=== PATIENT | female | born 1990 | race Caucasian/White ===

== ENCOUNTER 2023-02-13 10:28 | Emergency (ER) | payer OTHER ==
[2023-02-13 10:42] VITALS: BMI 28.0
[2023-02-13 11:23] LABS: BASO % 0.4 % (0-2.0); EOS % 0.5 % (0-4.5); HEMATOCRIT 35.7 % (32.4-45.2); HEMOGLOBIN 12.6 GM/dL (10.7-15.3); LYMPH % 17.1 % (8-40); MCH 32.4 pg (25.7-33.7); MCHC 35.5 g/dl (32.0-36.0); MEAN CELL VOLUME 91.4 fl (80-96); MEAN PLT VOLUME 8.2 fl (7.5-11.1); MONO % 4.3 % (3.8-10.2); NEUT % 77.7 % (42.8-82.8); PLATELET COUNT 241 10^3/uL (134-434); RDW 14.7 % (11.6-15.6); WHITE BLOOD COUNT 9.4 K/mm3 (4.0-10.0)
[2023-02-13 11:26] LABS: EPI CELLS >36 /uL (0-25.1); HYALINE CASTS 1 /uL (0-3.1); URINE APPEARANCE CLEAR; URINE BACTERIA 1581 /uL (0-1359); URINE BILIRUBIN NEGATIVE (NEGATIVE); URINE COLOR YELLOW; URINE GLUCOSE (UA) NEGATIVE (NEGATIVE); URINE KETONE NEGATIVE (NEGATIVE); URINE LEUK ESTERASE 1+ (NEGATIVE); URINE NITRITE NEGATIVE (NEGATIVE); URINE PROTEIN NEGATIVE (NEGATIVE); URINE RBC 37 /uL (0-23.9); URINE UROBILINOGEN 0.2 mg/dL (0.2-1.0); URINE WBC 15 /uL (0-25.8)
[2023-02-13 11:57] LABS: ALBUMIN 3.3 g/dl (3.4-5.0); CHLORIDE 104 mmol/L (98-107); POTASSIUM 4.5 mmol/L (3.5-5.1); SODIUM 133 mmol/L (136-145)
[2023-02-13 11:58] LABS: ANION GAP 3 MMOL/L (8-16); BLOOD UREA NITROGEN 8.1 mg/dL (7-18); CALCIUM 8.8 mg/dL (8.5-10.1); CO2 26 mmol/L (21-32); GLUCOSE,RANDOM 80 mg/dL (74-106)
[2023-02-13 12:02] LABS: CREATININE 0.5 mg/dL (0.55-1.3); SGOT/AST 9 U/L (15-37); SGPT/ALT 18 U/L (13-61)
[2023-02-13 12:04] LABS: ALK PHOS 52 U/L (45-117); BILIRUBIN,TOTAL < 0.1 mg/dL (0.2-1); TOT PROT 6.8 g/dl (6.4-8.2)
[2023-02-13] MEDS ORDERED: ONDANSETRON *ODT* 4 MG TABLET SL ONE (12:48)
[2023-02-13] MEDS ORDERED: ONDANSETRON *ODT* 4 MG TABLET ONE (13:02)
[2023-02-13 14:19] VITALS: BP 122/78; PULSE 72; RESP 19; TEMP 97.8
== END 2023-02-13 14:19 | disposition home or self-care (01) ==
LOC: JER 10:28
DX: O21.9 Vomiting of pregnancy, unspecified (principal); Z3A.15 15 weeks gestation of pregnancy
CPT/HCPCS: 36415; 80053; 81003; 84702; 85025; 86850; 86900; 86901; 87086; 99283-25; Q0162

== ENCOUNTER 2023-05-23 07:59 | Emergency (ER) | payer OTHER ==
[2023-05-23 08:13] VITALS: BMI 31.8
[2023-05-23] MEDS ORDERED: SODIUM CHLORIDE 1,000 ML IV STA (09:07)
[2023-05-23] MEDS ORDERED: ACETAMINOPHEN 1000 MG/100 ML BAG IVPB ONE (09:07)
[2023-05-23] MEDS ORDERED: ACETAMINOPHEN INJECTION 100 ML IVPB ONE (09:20)
[2023-05-23 10:02] LABS: BASO % 0.2 % (0-2.0); EOS % 0.1 % (0-4.5); HEMATOCRIT 43.1 % (32.4-45.2); HEMOGLOBIN 14.8 GM/dL (10.7-15.3); LYMPH % 10.4 % (8-40); MCH 33.2 pg (25.7-33.7); MCHC 34.4 g/dl (32.0-36.0); MEAN CELL VOLUME 96.5 fl (80-96); MEAN PLT VOLUME 8.1 fl (7.5-11.1); MONO % 9.7 % (3.8-10.2); NEUT % 79.6 % (42.8-82.8); PLATELET COUNT 278 10^3/uL (134-434); RBC 4.47 M/mm3 (3.60-5.2); RDW 13.7 % (11.6-15.6); WHITE BLOOD COUNT 6.8 K/mm3 (4.0-10.0)
[2023-05-23 10:03] LABS: EPI CELLS >36 /uL (0-25.1); HYALINE CASTS 9 /uL (0-3.1); URINE APPEARANCE CLOUDY; URINE BACTERIA 1670 /uL (0-1359); URINE BILIRUBIN NEGATIVE (NEGATIVE); URINE COLOR DK YELLOW; URINE GLUCOSE (UA) NEGATIVE (NEGATIVE); URINE KETONE 1+ (NEGATIVE); URINE LEUK ESTERASE 2+ (NEGATIVE); URINE NITRITE NEGATIVE (NEGATIVE); URINE PROTEIN 1+ (NEGATIVE); URINE WBC 208 /uL (0-25.8)
[2023-05-23 10:11] LABS: INR 0.98 (0.83-1.09); PROTHROMBIN TIME (PATIENT) 11.4 SEC (9.7-13.0)
[2023-05-23 10:14] LABS: ACTIVATED PTT 28.4 SECONDS (25.2-36.5)
[2023-05-23 10:15] LABS: CALCIUM 9.7 mg/dL (8.5-10.1)
[2023-05-23 10:16] LABS: ALBUMIN 3.1 g/dl (3.4-5.0); BLOOD UREA NITROGEN 6.5 mg/dL (7-18)
[2023-05-23 10:19] LABS: CREATININE 0.8 mg/dL (0.55-1.3)
[2023-05-23 10:20] LABS: TOT PROT 7.2 g/dl (6.4-8.2)
[2023-05-23 10:22] LABS: BILIRUBIN,TOTAL 0.9 mg/dL (0.2-1)
[2023-05-23 12:07] LABS: URINE RBC 56 /uL (0-23.9)
[2023-05-23 12:35] LABS: EPI CELLS 22 /uL (0-25.1); HYALINE CASTS 1 /uL (0-3.1); URINE APPEARANCE CLEAR; URINE BACTERIA 200 /uL (0-1359); URINE BILIRUBIN NEGATIVE (NEGATIVE); URINE COLOR YELLOW; URINE GLUCOSE (UA) NEGATIVE (NEGATIVE); URINE KETONE 2+ (NEGATIVE); URINE LEUK ESTERASE NEGATIVE (NEGATIVE); URINE NITRITE NEGATIVE (NEGATIVE); URINE PROTEIN 1+ (NEGATIVE); URINE RBC 45 /uL (0-23.9); URINE WBC 30 /uL (0-25.8)
[2023-05-23 16:03] VITALS: BP 134/85; PULSE 98; RESP 16; TEMP 99.8
== END 2023-05-23 16:20 | disposition home or self-care (01) ==
LOC: JER 07:59
PROC: 3E033NZ Introduction of Analgesics, Hypnotics, Sedatives into Peripheral Vein, Percutaneous Approach (ICD-10-PCS; principal; 2023-05-23)
PROC: 3E0337Z Introduction of Electrolytic and Water Balance Substance into Peripheral Vein, Percutaneous Approach (ICD-10-PCS; 2023-05-23)
DX: O98.513 Other viral diseases complicating pregnancy, third trimester (principal); J10.1 Influenza due to other identified influenza virus with other respiratory manifestations; O23.43 Unspecified infection of urinary tract in pregnancy, third trimester; O26.893 Other specified pregnancy related conditions, third trimester; M79.10 Myalgia, unspecified site; R05.9 Cough, unspecified; R19.7 Diarrhea, unspecified; R06.02 Shortness of breath; R50.9 Fever, unspecified; R51.9 Headache, unspecified; R11.0 Nausea; Z3A.28 28 weeks gestation of pregnancy; Z20.822 Contact with and (suspected) exposure to COVID-19
CPT/HCPCS: 0241U-QW; 36415; 80053; 81003; 85025; 85610; 85730; 86850; 86900; 86901; 87086; 93005; 93010; 99284-25

== ENCOUNTER 2023-07-04 15:15 | Inpatient (IN) | payer OTHER ==
[2023-07-04] MEDS ORDERED: NIFEdipine 10 MG CAPSULE (FP) ONE ×2 (16:07→20:33)
[2023-07-04] MEDS: NIFEdipine 10 MG CAPSULE (FP) PO ONE ×2 (16:09→20:35)
[2023-07-04 16:13] LABS: BASO % 0.3 % (0-2.0); EOS % 0.1 % (0-4.5); HEMATOCRIT 41.8 % (32.4-45.2); HEMOGLOBIN 14.3 GM/dL (10.7-15.3); MCH 32.8 pg (25.7-33.7); MCHC 34.1 g/dl (32.0-36.0); MEAN CELL VOLUME 96.2 fl (80-96); MEAN PLT VOLUME 8.5 fl (7.5-11.1); MONO % 4.5 % (3.8-10.2); NEUT % 71.1 % (42.8-82.8); PLATELET COUNT 321 10^3/uL (134-434); RBC 4.35 M/mm3 (3.60-5.2); RDW 13.5 % (11.6-15.6); WHITE BLOOD COUNT 7.9 K/mm3 (4.0-10.0)
[2023-07-04] MEDS: ELECTROLYTE-148 SOLN 1,000 ML IV SCH (16:35)
[2023-07-04 16:39] LABS: CHLORIDE 109 mmol/L (98-107); SODIUM 138 mmol/L (136-145)
[2023-07-04] MEDS ORDERED: LABETALOL HCL 20 MG/4 ML VIAL ONE ×2 (16:40→17:06)
[2023-07-04 16:42] LABS: ALBUMIN 1.9 g/dl (3.4-5.0); ANION GAP 7 mmol/L (4-13); BLOOD UREA NITROGEN 12.7 mg/dL (7-18); CALCIUM 8.8 mg/dL (8.5-10.1); CO2 23 mmol/L (21-32); GLUCOSE,RANDOM 123 mg/dL (74-106)
[2023-07-04 16:45] LABS: BILIRUBIN,DIRECT < 0.1 mg/dL (0.0-0.2); CREATININE 0.8 mg/dL (0.55-1.3); SGOT/AST 24 U/L (15-37); SGPT/ALT 38 U/L (13-61)
[2023-07-04] MEDS: LABETALOL HCL 20 MG/4 ML VIAL IVPUSH ONE ×2 (16:45→17:10)
[2023-07-04 16:47] LABS: BILIRUBIN,TOTAL 0.2 mg/dL (0.2-1); TOT PROT 5.2 g/dl (6.4-8.2)
[2023-07-04 16:48] LABS: ALK PHOS 147 U/L (45-117)
[2023-07-04 16:54] LABS: EPI CELLS >36 /uL (0-25.1); HYALINE CASTS 12 /uL (0-3.1); PH,URINE 6.5 (5.0-8.0); URINE APPEARANCE CLOUDY; URINE BACTERIA 1360 /uL (0-1359); URINE BILIRUBIN NEGATIVE (NEGATIVE); URINE COLOR YELLOW; URINE GLUCOSE (UA) NEGATIVE (NEGATIVE); URINE KETONE NEGATIVE (NEGATIVE); URINE LEUK ESTERASE 2+ (NEGATIVE); URINE NITRITE NEGATIVE (NEGATIVE); URINE PROTEIN 4+ (NEGATIVE); URINE UROBILINOGEN 0.2 mg/dL (0.2-1.0); URINE WBC 365 /uL (0-25.8)
[2023-07-04 17:20] LABS: URINE RBC 50 /uL (0-23.9)
[2023-07-04 17:32] VITALS: BMI 34.5
[2023-07-04] MEDS ORDERED: MAGNESIUM 4GM/H20 - 4 GM/100 ML IVPB IVPB ONE (17:33)
[2023-07-04] MEDS: MAGNESIUM 4GM/H20 - 4 GM/100 ML IVPB IVPB ONE (17:36)
[2023-07-04] MEDS ORDERED: BETAMET ACET/BETAMET NA PH 30 MG/5 ML VIAL ONE (17:37)
[2023-07-04] MEDS ORDERED: ELECTROLYTE-148 SOLN 1,000 ML IV SCH (17:45)
[2023-07-04] MEDS: BETAMET ACET/BETAMET NA PH 30 MG/5 ML VIAL IM ONE (17:50)
[2023-07-04] MEDS ORDERED: MAGNESIUM SULFATE 20GM/500ML - 20 GM/500 ML INFUS.BAG ONE (18:09)
[2023-07-04] MEDS: MAGNESIUM SULFATE 20GM/500ML - 20 GM/500 ML INFUS.BAG IVPB SCH (18:10)
[2023-07-04 18:28] LABS: INR 0.85 (0.83-1.09); PROTHROMBIN TIME (PATIENT) 9.9 SEC (9.7-13.0)
[2023-07-04 18:35] VITALS: RESP 18
[2023-07-04] MEDS ORDERED: ACETAMINOPHEN INJECTION 100 ML IVPB ONE (19:23)
[2023-07-04] MEDS: ACETAMINOPHEN 1000 MG/100 ML BAG IVPB ONE (19:24)
[2023-07-04 22:29] VITALS: BP 122/79; PULSE 91; TEMP 97.4
== END 2023-07-04 21:42 | disposition short-term general hospital (02) | DRG 566 ==
LOC: JDEL 15:15 → JLDR 16:30
PROVIDERS: ADMIT Obstetrics & Gynecology; ATTEND Obstetrics & Gynecology
DX: O14.13 Severe pre-eclampsia, third trimester (principal); O36.5930 Maternal care for other known or suspected poor fetal growth, third trimester, not applicable or unspecified; Z3A.33 33 weeks gestation of pregnancy
CPT/HCPCS: 36415; 80053; 80076; 81003; 84550; 85025; 85610; 85730; 86780; 86850; 86900; 86901; 87635; 96372; J0131